=== PATIENT | male | born 1940 | race African-American/Black ===

== ENCOUNTER 2019-08-14 18:26 | Inpatient (IN) | payer OTHER, MEDICAID ==
[~2019-08-14] VITALS: Ht 170.2 cm; Wt 81.2 kg
[2019-08-14 19:17] LABS: HEMATOCRIT. 39.3 % (42.0-52.0); HEMOGLOBIN. 13.2 g/dL (14.0-18.0); MEAN CORPUSCULAR VOLUME 86.6 fL (80.0-94.0); MEAN PLATELET VOLUME 7.2 fl (7.4-10.4); PLATELET 183 x1000/uL (130-400); RED BLOOD CELL COUNT 4.55 mill/uL (4.7-6.1); RED CELL DISTRIBUTION WIDTH 15.1 % (11.6-14.6)
[2019-08-14 19:23] LABS: PROTHROMBIN TIME 10.7 sec (9.6-11.0)
[2019-08-14 19:25] LABS: CHLORIDE 91 mEq/L (98-107)
[2019-08-14 19:30] LABS: ETHANOL BLOOD < 10 mg/dL
[2019-08-14 19:32] LABS: LDL CHOLESTEROL 98 mg/dL (5-100)
[2019-08-14] MEDS ORDERED: SODIUM CHLORIDE 0.9% 1,000 ML IV NR (19:35)
[2019-08-14 20:12] LABS: PLATELET ESTIMATE NORMAL
[2019-08-14] MEDS ORDERED: ASPIRIN 325MG EC TABLET PO NR (20:30)
[2019-08-14] MEDS ORDERED: ONDANSETRON HCL 4MG/2ML INJ ONE (20:34)
[2019-08-14] MEDS ORDERED: SODIUM CHLORIDE 0.9% 1,000 ML IV ONE (20:42)
[2019-08-14] MEDS ORDERED: PIPERACILLIN/TAZ 3.375G PREMIX 50 ML IV ONE (20:45)
[2019-08-14] MEDS ORDERED: VANCOMYCIN 1 G PREMIX 200 ML IV ONE (20:45)
[2019-08-14] MEDS ORDERED: ASPIRIN 300MG SUPP PR ONE (21:00)
[2019-08-14] MEDS ORDERED: ONDANSETRON HCL 4MG/2ML INJ IV ONE (21:00)
[2019-08-14] MEDS ORDERED: ONDANSETRON HCL 4MG/2ML INJ IV PRN (21:30)
[2019-08-14] MEDS ORDERED: ACETAMINOPHEN 325MG TABLET PO PRN (21:30)
[2019-08-14] MEDS ORDERED: IOHEXOL-350 100 ML BOTTLE ONE (21:36)
[2019-08-14] MEDS ORDERED: ACETAMINOPHEN 650MG SUPP PR ONE (22:15)
[2019-08-14] MEDS ORDERED: ACETAMINOPHEN 325MG TABLET PO ONE (22:15)
[2019-08-14] MEDS ORDERED: SODIUM CHLORIDE 0.9% 1000ML BAG (SEPSIS BOLUS) IV ONE (22:15)
[2019-08-14 23:35] VITALS: BP 130/91
[2019-08-15] VITALS (12 sets, daily range): BP systolic 69–128; BP diastolic 34–55
[2019-08-15] MEDS ORDERED: MIDO5TAB4 PO (04:04)
[2019-08-15] MEDS ORDERED: ATOR40TA70 PO (04:05)
[2019-08-15] MEDS ORDERED: CLOP75TA33 PO (04:05)
[2019-08-15] MEDS ORDERED: TERA10CA4 PO (04:06)
[2019-08-15] MEDS ORDERED: OMEP20CA14 PO (04:07)
[2019-08-15] MEDS ORDERED: DEXT15DR5 RIGHTEYE (04:08)
[2019-08-15] MEDS ORDERED: FOLI1TAB33 PO (04:09)
[2019-08-15] MEDS ORDERED: PRED5DRO22 LEFTEYE (04:10)
[2019-08-15] MEDS ORDERED: LATA2.5D2 LEFTEYE (04:11)
[2019-08-15] MEDS ORDERED: DOCU240C26 PO (04:12)
[2019-08-15] MEDS ORDERED: CARB15DR BOTHEYE (04:14)
[2019-08-15 06:27] LABS: BASOPHILS % 0.3 % (0.0-2.0); EOSINOPHILS % 0.1 % (0.0-5.0); HEMATOCRIT. 35.1 % (42.0-52.0); HEMOGLOBIN. 11.7 g/dL (14.0-18.0); LYMPHOCYTES % 11.5 % (20.0-50.0); MEAN CORPUSCULAR HEMOGLOBIN 28.6 pg (28.0-32.0); MEAN CORPUSCULAR VOLUME 85.9 fL (80.0-94.0); MEAN PLATELET VOLUME 7.3 fl (7.4-10.4); MONOCYTES % 10.5 % (2.0-8.0); NEUTROPHILS % 77.6 % (40.0-76.0); PLATELET 184 x1000/uL (130-400); RED BLOOD CELL COUNT 4.08 mill/uL (4.7-6.1); RED CELL DISTRIBUTION WIDTH 15.2 % (11.6-14.6)
[2019-08-15 06:35] LABS: CHLORIDE 96 mEq/L (98-107)
[2019-08-15 06:53] LABS: LDL CHOLESTEROL 82 mg/dL (5-100)
[2019-08-15 06:54] LABS: HDL CHOLESTEROL 76 mg/dL (40-59)
[2019-08-15] MEDS ORDERED: NON FORMULARY PATIENT HOME MED OP SCH ×2 (10:15→11:45)
[2019-08-15] MEDS ORDERED: [UNRECOGNIZED DRUG - OTHER] (11:43)
[2019-08-15] MEDS: HEPARIN 5000 UNITS/ML VIAL SUBCUT SCH ×2 (12:01→22:31)
[2019-08-15] MEDS: CLOPIDOGREL 75MG TABLET PO SCH (12:01)
[2019-08-15] MEDS: DOCUSATE SODIUM 250MG CAPSULE PO SCH ×2 (12:02→22:30)
[2019-08-15] MEDS: FOLIC ACID/VITAMIN B COMP W-C TABLET PO SCH (12:02)
[2019-08-15] MEDS ORDERED: PREDNISOLONE ACETATE 1% OPHTH DROPS 5ML LEFTEYE SCH (13:00)
[2019-08-15] MEDS: POLYVINYL ALCOHOL OPHTH DROPS 15ML RIGHTEYE SCH (13:11)
[2019-08-15] MEDS ORDERED: DORZ10DR9 LEFTEYE (14:54)
[2019-08-15] MEDS: MIDODRINE HCL 5MG TABLET PO SCH ×2 (15:14→17:49)
[2019-08-15] MEDS: DORZOLAM/TIMOLOL 2.23/0.68% OPHTH DROPS 10ML LEFTEYE SCH (17:45)
[2019-08-15] MEDS: TERAZOSIN HCL 5MG CAPSULE PO SCH (21:00)
[2019-08-15] MEDS: LATANOPROST 0.005% OPHTH DROPS 2.5ML LEFTEYE SCH (21:00)
[2019-08-15] MEDS: ATORVASTATIN CALCIUM 40MG TABLET PO SCH (22:31)
[2019-08-15] MEDS: REFRESH TEARS EACHEYE PRN (22:33)
[2019-08-16] VITALS (41 sets, daily range): BP systolic 74–156; BP diastolic 29–76
[2019-08-16] MEDS ORDERED: HETASTARCH/NORMAL SALINE 500 ML PLAST..BAG IV ONE (00:30)
[2019-08-16] MEDS ORDERED: HETASTARCH/NORMAL SALINE 250 ML IV NR (01:00)
[2019-08-16 06:04] LABS: CHLORIDE 110 mEq/L (98-107)
[2019-08-16 06:10] LABS: BASOPHILS % 0.6 % (0.0-2.0); EOSINOPHILS % 3.6 % (0.0-5.0); HEMOGLOBIN. 10.5 g/dL (14.0-18.0); LYMPHOCYTES % 20.4 % (20.0-50.0); MEAN CORPUSCULAR HEMOGLOBIN 28.5 pg (28.0-32.0); MEAN CORPUSCULAR VOLUME 86.6 fL (80.0-94.0); MEAN PLATELET VOLUME 7.9 fl (7.4-10.4); MONOCYTES % 11.8 % (2.0-8.0); NEUTROPHILS % 63.6 % (40.0-76.0); PLATELET 163 x1000/uL (130-400); RED BLOOD CELL COUNT 3.69 mill/uL (4.7-6.1); RED CELL DISTRIBUTION WIDTH 15.4 % (11.6-14.6)
[2019-08-16] MEDS: DOCUSATE SODIUM 250MG CAPSULE PO SCH ×2 (08:52→17:00)
[2019-08-16] MEDS: FOLIC ACID/VITAMIN B COMP W-C TABLET PO SCH (08:54)
[2019-08-16] MEDS: MIDODRINE HCL 5MG TABLET PO SCH ×3 (08:54→16:30)
[2019-08-16] MEDS: OMEPRAZOLE 20MG CAPSULE EXTENDED RELEASE PO SCH (08:54)
[2019-08-16] MEDS: DORZOLAM/TIMOLOL 2.23/0.68% OPHTH DROPS 10ML LEFTEYE SCH ×2 (08:55→18:00)
[2019-08-16] MEDS: POLYVINYL ALCOHOL OPHTH DROPS 15ML RIGHTEYE SCH (08:55)
[2019-08-16] MEDS: CLOPIDOGREL 75MG TABLET PO SCH (08:56)
[2019-08-16] MEDS ORDERED: MIDODRINE HCL 5MG TABLET PO SCH (09:00)
[2019-08-16] MEDS ORDERED: THROMBIN (BOVINE) 5000 UNITS/VIAL TOP ONE (09:53)
[2019-08-16] MEDS ORDERED: BACITRACIN 15GM TUBE TOP ONE (09:53)
[2019-08-16] MEDS ORDERED: LIDOCAINE HCL 1% 20ML VIAL (Pyxis) INJ ONE (09:53)
[2019-08-16] MEDS ORDERED: BACITRACIN 50,000 UNITS/VIAL ONE (09:54)
[2019-08-16] MEDS ORDERED: HEPARIN SODIUM 1,000 UNIT/1ML VIAL IV ONE (09:54)
[2019-08-16] MEDS ORDERED: BUPIVACAINE HCL/PF 0.5% (5MG/ML) 10ML ONE (09:54)
[2019-08-16] MEDS ORDERED: MORPHINE SULFATE 4 MG/ML CPJ (NOT FOR IM USE) IV PRN (10:15)
[2019-08-16] MEDS ORDERED: NICARDIPINE 40MG/200ML PREMIX 200 ML IV PRN (10:15)
[2019-08-16] MEDS ORDERED: FENTANYL CITRATE/PF 50MCG/ML 2ML VIAL ONE (10:19)
[2019-08-16] MEDS ORDERED: ROCURONIUM BROMIDE 10MG/ML VIAL 5ML IV ONE (10:19)
[2019-08-16] MEDS ORDERED: PROPOFOL 200MG/20ML VIAL IV ONE (10:20)
[2019-08-16] MEDS ORDERED: MIDAZOLAM HCL 2 MG/2 ML VIAL ONE (10:20)
[2019-08-16] MEDS ORDERED: GLYCOPYRROLATE 0.2 MG/ML 2ML VIAL ONE ×2 (10:20→11:36)
[2019-08-16] MEDS ORDERED: NEOSTIGMINE METHYLSULFATE 1MG/ML 10 ML VIAL ONE (10:20)
[2019-08-16] MEDS ORDERED: ONDANSETRON HCL 4MG/2ML INJ ONE (10:27)
[2019-08-16] MEDS ORDERED: DEXAMETHASONE 4MG/ML 1ML VIAL ONE (10:27)
[2019-08-16] MEDS: ASPIRIN 81MG EC TABLET PO SCH (17:45)
[2019-08-16 20:31] LABS: HEMATOCRIT 31.6 % (42.0-52.0); HEMOGLOBIN 10.4 g/dL (14.0-18.0)
[2019-08-16] MEDS: TERAZOSIN HCL 5MG CAPSULE PO SCH (21:00)
[2019-08-16] MEDS: ATORVASTATIN CALCIUM 40MG TABLET PO SCH (22:24)
[2019-08-16] MEDS: LATANOPROST 0.005% OPHTH DROPS 2.5ML LEFTEYE SCH (22:26)
[2019-08-17] VITALS (58 sets, daily range): BP systolic 67–125; BP diastolic 38–77
[2019-08-17] MEDS ORDERED: SODIUM CHLORIDE 0.9% 250 ML IV ONE (01:45)
[2019-08-17] MEDS ORDERED: NOREPINEPHRINE 16 MG in DEXT 5% WATER 484 ML IV PRN ×2 (01:45→07:43)
[2019-08-17 06:51] LABS: BASOPHILS % 0.5 % (0.0-2.0); EOSINOPHILS % 0.8 % (0.0-5.0); HEMATOCRIT. 30.4 % (42.0-52.0); HEMOGLOBIN. 10.1 g/dL (14.0-18.0); LYMPHOCYTES % 12.8 % (20.0-50.0); MEAN CORPUSCULAR HEMOGLOBIN 28.9 pg (28.0-32.0); MEAN CORPUSCULAR VOLUME 87.1 fL (80.0-94.0); MEAN PLATELET VOLUME 6.9 fl (7.4-10.4); MONOCYTES % 10.9 % (2.0-8.0); PLATELET 174 x1000/uL (130-400); RED BLOOD CELL COUNT 3.49 mill/uL (4.7-6.1); RED CELL DISTRIBUTION WIDTH 15.3 % (11.6-14.6)
[2019-08-17 06:53] LABS: CHLORIDE 113 mEq/L (98-107)
[2019-08-17] MEDS: OMEPRAZOLE 20MG CAPSULE EXTENDED RELEASE PO SCH (07:50)
[2019-08-17] MEDS: FOLIC ACID/VITAMIN B COMP W-C TABLET PO SCH (09:00)
[2019-08-17] MEDS: MIDODRINE HCL 5MG TABLET PO SCH ×3 (09:00→17:34)
[2019-08-17] MEDS: CLOPIDOGREL 75MG TABLET PO SCH (09:00)
[2019-08-17] MEDS: ASPIRIN 81MG EC TABLET PO SCH (09:00)
[2019-08-17] MEDS: DORZOLAM/TIMOLOL 2.23/0.68% OPHTH DROPS 10ML LEFTEYE SCH ×2 (09:00→17:35)
[2019-08-17] MEDS: POLYVINYL ALCOHOL OPHTH DROPS 15ML RIGHTEYE SCH (09:00)
[2019-08-17] MEDS: DOCUSATE SODIUM 250MG CAPSULE PO SCH ×2 (09:00→17:34)
[2019-08-17] MEDS: TERAZOSIN HCL 5MG CAPSULE PO SCH (21:00)
[2019-08-17] MEDS: LATANOPROST 0.005% OPHTH DROPS 2.5ML LEFTEYE SCH (22:51)
[2019-08-17] MEDS: ATORVASTATIN CALCIUM 40MG TABLET PO SCH (22:52)
[2019-08-18] VITALS (46 sets, daily range): BP systolic 55–143; BP diastolic 35–83
[2019-08-18 05:48] LABS: BASOPHILS % 0.5 % (0.0-2.0); EOSINOPHILS % 3.3 % (0.0-5.0); HEMATOCRIT. 26.5 % (42.0-52.0); HEMOGLOBIN. 8.8 g/dL (14.0-18.0); LYMPHOCYTES % 15.3 % (20.0-50.0); MEAN CORPUSCULAR HEMOGLOBIN 28.8 pg (28.0-32.0); MEAN CORPUSCULAR VOLUME 86.5 fL (80.0-94.0); MEAN PLATELET VOLUME 7.4 fl (7.4-10.4); MONOCYTES % 9.9 % (2.0-8.0); PLATELET 169 x1000/uL (130-400); RED BLOOD CELL COUNT 3.07 mill/uL (4.7-6.1)
[2019-08-18 05:53] LABS: CHLORIDE 111 mEq/L (98-107)
[2019-08-18] MEDS: ASPIRIN 81MG EC TABLET PO SCH (08:15)
[2019-08-18] MEDS: CLOPIDOGREL 75MG TABLET PO SCH (08:15)
[2019-08-18] MEDS: FOLIC ACID/VITAMIN B COMP W-C TABLET PO SCH (08:15)
[2019-08-18] MEDS: DOCUSATE SODIUM 250MG CAPSULE PO SCH ×2 (08:18→16:42)
[2019-08-18] MEDS: MIDODRINE HCL 5MG TABLET PO SCH ×2 (08:18→16:42)
[2019-08-18] MEDS: DORZOLAM/TIMOLOL 2.23/0.68% OPHTH DROPS 10ML LEFTEYE SCH ×2 (08:20→16:42)
[2019-08-18] MEDS: OMEPRAZOLE 20MG CAPSULE EXTENDED RELEASE PO SCH (08:20)
[2019-08-18] MEDS: REFRESH TEARS EACHEYE PRN (08:20)
[2019-08-18] MEDS: POLYVINYL ALCOHOL OPHTH DROPS 15ML RIGHTEYE SCH (08:20)
[2019-08-18] MEDS: ATORVASTATIN CALCIUM 40MG TABLET PO SCH (20:39)
[2019-08-18] MEDS: LATANOPROST 0.005% OPHTH DROPS 2.5ML LEFTEYE SCH (20:39)
[2019-08-18] MEDS: TERAZOSIN HCL 5MG CAPSULE PO SCH (21:00)
[2019-08-19] VITALS (37 sets, daily range): BP systolic 68–136; BP diastolic 32–67
[2019-08-19 05:27] LABS: BASOPHILS % 0.6 % (0.0-2.0); CHLORIDE 109 mEq/L (98-107); EOSINOPHILS % 4.6 % (0.0-5.0); HEMATOCRIT. 25.1 % (42.0-52.0); HEMOGLOBIN. 8.4 g/dL (14.0-18.0); LYMPHOCYTES % 13.9 % (20.0-50.0); MEAN CORPUSCULAR VOLUME 86.4 fL (80.0-94.0); MEAN PLATELET VOLUME 7.3 fl (7.4-10.4); MONOCYTES % 10.1 % (2.0-8.0); NEUTROPHILS % 70.8 % (40.0-76.0); PLATELET 156 x1000/uL (130-400); RED BLOOD CELL COUNT 2.91 mill/uL (4.7-6.1)
[2019-08-19] MEDS: MIDODRINE HCL 5MG TABLET PO SCH ×3 (07:43→17:59)
[2019-08-19] MEDS: OMEPRAZOLE 20MG CAPSULE EXTENDED RELEASE PO SCH (07:43)
[2019-08-19] MEDS: POLYVINYL ALCOHOL OPHTH DROPS 15ML RIGHTEYE SCH (09:00)
[2019-08-19] MEDS: CLOPIDOGREL 75MG TABLET PO SCH (11:05)
[2019-08-19] MEDS: FOLIC ACID/VITAMIN B COMP W-C TABLET PO SCH (11:05)
[2019-08-19] MEDS: ASPIRIN 81MG EC TABLET PO SCH (11:05)
[2019-08-19] MEDS: DOCUSATE SODIUM 250MG CAPSULE PO SCH ×2 (11:05→17:59)
[2019-08-19] MEDS: DORZOLAM/TIMOLOL 2.23/0.68% OPHTH DROPS 10ML LEFTEYE SCH ×2 (11:05→18:00)
[2019-08-19 17:59] LABS: HEMATOCRIT 28.1 % (42.0-52.0); HEMOGLOBIN 9.3 g/dL (14.0-18.0)
[2019-08-19] MEDS: TERAZOSIN HCL 5MG CAPSULE PO SCH (21:00)
[2019-08-19] MEDS: CARVEDILOL 3.125 MG TABLET PO SCH (21:00)
[2019-08-19] MEDS: LATANOPROST 0.005% OPHTH DROPS 2.5ML LEFTEYE SCH (22:26)
[2019-08-19] MEDS: ATORVASTATIN CALCIUM 40MG TABLET PO SCH (22:26)
[2019-08-20] VITALS (13 sets, daily range): BP systolic 87–138; BP diastolic 42–72
[2019-08-20 06:44] LABS: BASOPHILS % 0.4 % (0.0-2.0); EOSINOPHILS % 4.7 % (0.0-5.0); LYMPHOCYTES % 14.8 % (20.0-50.0); MEAN CORPUSCULAR HEMOGLOBIN 28.7 pg (28.0-32.0); MEAN CORPUSCULAR VOLUME 85.6 fL (80.0-94.0); MEAN PLATELET VOLUME 7.5 fl (7.4-10.4); MONOCYTES % 9.9 % (2.0-8.0); NEUTROPHILS % 70.2 % (40.0-76.0); PLATELET 197 x1000/uL (130-400); RED BLOOD CELL COUNT 3.15 mill/uL (4.7-6.1); RED CELL DISTRIBUTION WIDTH 14.9 % (11.6-14.6)
[2019-08-20] MEDS: OMEPRAZOLE 20MG CAPSULE EXTENDED RELEASE PO SCH (06:56)
[2019-08-20] MEDS: CARVEDILOL 3.125 MG TABLET PO SCH (08:19)
[2019-08-20] MEDS: MIDODRINE HCL 5MG TABLET PO SCH ×3 (08:22→17:05)
[2019-08-20] MEDS: FOLIC ACID/VITAMIN B COMP W-C TABLET PO SCH (08:22)
[2019-08-20] MEDS: REFRESH TEARS EACHEYE PRN (08:22)
[2019-08-20] MEDS: DOCUSATE SODIUM 250MG CAPSULE PO SCH ×2 (08:22→17:05)
[2019-08-20] MEDS: DORZOLAM/TIMOLOL 2.23/0.68% OPHTH DROPS 10ML LEFTEYE SCH ×2 (08:23→17:05)
[2019-08-20] MEDS: POLYVINYL ALCOHOL OPHTH DROPS 15ML RIGHTEYE SCH (12:58)
[2019-08-20] MEDS ORDERED: ASPI-1497 MT (16:45)
[2019-08-20] MEDS ORDERED: CLOP75TA4 MT (16:45)
== END 2019-08-20 17:55 | disposition home or self-care (01) | DRG 37 ==
LOC: ER 18:26 → 5EST 21:16 → EDBEDREQ 21:21 → EDBEDREQTM 21:21 → ENRESERV 21:50 → 5EST 08-15 00:32 → CVICU 08-16 12:45 → 3WST 08-19 16:35
PROVIDERS: ADMIT Internal Medicine; ATTEND Internal Medicine
PROC: 5A1D70Z Performance of Urinary Filtration, Intermittent, Less than 6 Hours Per Day (ICD-10-PCS; 2019-08-15)
PROC: 03CN0ZZ Extirpation of Matter from Left External Carotid Artery, Open Approach (ICD-10-PCS; principal; 2019-08-16)
PROC: 03CL0ZZ Extirpation of Matter from Left Internal Carotid Artery, Open Approach (ICD-10-PCS; 2019-08-16)
PROC: 03CJ0ZZ Extirpation of Matter from Left Common Carotid Artery, Open Approach (ICD-10-PCS; 2019-08-16)
PROC: 5A1D70Z Performance of Urinary Filtration, Intermittent, Less than 6 Hours Per Day (ICD-10-PCS; 2019-08-16)
PROC: 5A1D70Z Performance of Urinary Filtration, Intermittent, Less than 6 Hours Per Day (ICD-10-PCS; 2019-08-19)
PROC: 5A1D70Z Performance of Urinary Filtration, Intermittent, Less than 6 Hours Per Day (ICD-10-PCS; 2019-08-20)
DX: I65.22 Occlusion and stenosis of left carotid artery (principal); I50.33 Acute on chronic diastolic (congestive) heart failure; N18.6 End stage renal disease; R65.11 Systemic inflammatory response syndrome (SIRS) of non-infectious origin with acute organ dysfunction; E87.1 Hypo-osmolality and hyponatremia; I13.11 Hypertensive heart and chronic kidney disease without heart failure, with stage 5 chronic kidney disease, or end stage renal disease; J98.11 Atelectasis; I13.2 Hypertensive heart and chronic kidney disease with heart failure and with stage 5 chronic kidney disease, or end stage renal disease; E44.0 Moderate protein-calorie malnutrition; I65.23 Occlusion and stenosis of bilateral carotid arteries; E78.5 Hyperlipidemia, unspecified; E87.5 Hyperkalemia; R47.81 Slurred speech; D64.9 Anemia, unspecified; I44.0 Atrioventricular block, first degree; D63.8 Anemia in other chronic diseases classified elsewhere; I49.1 Atrial premature depolarization; Z82.49 Family history of ischemic heart disease and other diseases of the circulatory system; Z79.899 Other long term (current) drug therapy; Z99.2 Dependence on renal dialysis; Z82.3 Family history of stroke; Z86.73 Personal history of transient ischemic attack (TIA), and cerebral infarction without residual deficits; Z79.02 Long term (current) use of antithrombotics/antiplatelets
CPT/HCPCS: 36415; 70496; 70498; 70544; 70553; 71045; 80048; 80053; 80061; 80320; 82140; 82962; 83036; 83605; 83721; 83735; 84132; 84145; 84484; 85014; 85018; 85025; 86850; 86900; 88304; 88311; 92610; 93005; 93306; 93880; 97162; 97164; 99291; 99292; J1100; J1644; J2250; J2405; J2543; J2704; J2710; J3010; J3370; J3490; J7030; Q9967; G0480

== ENCOUNTER 2021-06-17 11:07 | Emergency (ER) | payer OTHER, MEDICAID ==
[~2021-06-17] VITALS: Ht 172.7 cm; Wt 73.0 kg
[~2021-06-17 11:07] MED LIST: ASPI-1497 MT; ATOR40TA70 PO; CARB15DR BOTHEYE; CLOP-31 MT; CLOP75TA33 PO; DOCU240C26 PO; DORZ10DR9 LEFTEYE; FOLI1TAB33 PO; LATA2.5D14 LEFTEYE; MIDO5TAB4 PO; OMEP20CA14 PO; TERA10CA4 PO; [UNRECOGNIZED DRUG - OTHER]
[2021-06-17 11:15] VITALS: BP 108/48
[2021-06-17] MEDS ORDERED: ACETAMINOPHEN 325MG TABLET PO ONE (12:00)
== END 2021-06-17 12:58 | disposition home or self-care (01) ==
LOC: ER 11:07
DX: U07.1 COVID-19 (principal); R50.9 Fever, unspecified; I12.0 Hypertensive chronic kidney disease with stage 5 chronic kidney disease or end stage renal disease; N18.6 End stage renal disease; Z99.2 Dependence on renal dialysis; Z79.82 Long term (current) use of aspirin; Z86.73 Personal history of transient ischemic attack (TIA), and cerebral infarction without residual deficits
CPT/HCPCS: 99283

== ENCOUNTER 2021-10-05 18:50 | Inpatient (IN) | payer OTHER, MEDICAID ==
[~2021-10-05] VITALS: Ht 177.8 cm; Wt 67.6 kg
[2021-10-05] MEDS ORDERED: IOHEXOL-350 100 ML BOTTLE ONE (19:41)
[2021-10-05] MEDS ORDERED: LEVETIRACETAM 1000MG PREMIX 100 ML IV ONE (19:45)
[2021-10-05] MEDS ORDERED: ONDANSETRON HCL 4MG/2ML INJ IV ONE (19:45)
[2021-10-05] MEDS ORDERED: LORAZEPAM 2MG/ML CPJ IV ONE ×2 (19:45→22:30)
[2021-10-05 19:52] LABS: BASOPHILS % 0.2 % (0.0-2.0); HEMATOCRIT. 29.8 % (42.0-52.0); LYMPHOCYTES % 8.3 % (20.0-50.0); MEAN CORPUSCULAR HEMOGLOBIN 29.1 pg (28.0-32.0); MEAN CORPUSCULAR VOLUME 86.7 fL (80.0-94.0); MEAN PLATELET VOLUME 7.3 fl (7.4-10.4); MONOCYTES % 3.9 % (2.0-8.0); NEUTROPHILS % 87.6 % (40.0-76.0); PLATELET 222 x1000/uL (130-400); RED BLOOD CELL COUNT 3.44 mill/uL (4.7-6.1); RED CELL DISTRIBUTION WIDTH 15.3 % (11.6-14.6)
[2021-10-05 19:58] LABS: CHLORIDE 99 mEq/L (98-107)
[2021-10-05 20:07] LABS: ETHANOL BLOOD < 10 mg/dL
[2021-10-05] MEDS ORDERED: SODIUM CHLORIDE 0.9% 1000ML BAG (SEPSIS BOLUS) IV ONE (21:00)
[2021-10-05] MEDS ORDERED: ACYCLOVIR INJ 750 MG in DEXT 5% WATER 100 ML IV STA (21:22)
[2021-10-05] MEDS ORDERED: PIPERACILLIN/TAZ 3.375G PREMIX 50 ML IV NR (21:30)
[2021-10-05] MEDS ORDERED: ACETAMINOPHEN 650MG SUPP PR NR (21:30)
[2021-10-05] MEDS ORDERED: VANCOMYCIN 1G PREMIX 200 ML IV ONE (21:30)
[2021-10-06] VITALS (11 sets, daily range): BP systolic 130–182; BP diastolic 60–107
[2021-10-06 00:14] LABS: GLUCOSE CSF 70 mg/dL (41-75)
[2021-10-06] MEDS ORDERED: ACETAMINOPHEN 325MG TABLET PO PRN (03:00)
[2021-10-06] MEDS ORDERED: DEXTROSE 50% WATER 50ML SYRINGE IV PRN (11:00)
[2021-10-06 11:05] LABS: BG BASE EXCESS 5.5 mmol/L (-2.0-2.0); BG CARBOXYHEMOGLOBIN 0.3 % (0.5-1.5); BG DEOXYHEMOGLOBIN 1.2 % (0.0-5.0); BG FRACTION INSPIRED OXYGEN 26; BG HCO3 ACT 30.2 mmol/L (22.0-26.0); BG METHEMOGLOBIN 0.3 % (0.0-1.5); BG OXYGEN SATURATION 98.8 % (92.0-98.5); BG OXYHEMOGLOBIN 98.2 % (94.0-97.0); BG PCO2 44.7 mmHg (35.0-45.0); BG PH 7.447 (7.350-7.450); BG PO2 136.7 mmHg (75.0-100.0); BG SAMPLE SITE RIGHT RADIAL; BG TOTAL HEMOGLOBIN 9.4 g/dL (12.0-18.0); BG VENT MODE NASAL CANNULA
[2021-10-06] MEDS: DEXT 5%/0.45% NACL 1000ML 1,000 ML IV SCH (11:12)
[2021-10-06] MEDS: FAMOTIDINE 20MG/2ML VIAL IV SCH (11:12)
[2021-10-06] MEDS: HYDRALAZINE 20MG/ML VIAL IV PRN ×3 (11:12→23:11)
[2021-10-06] MEDS: PIPERACILLIN/TAZOBACTAM 3.375 G in DEXTROSE 5% WATER 50 ML IV SCH ×3 (12:00→22:03)
[2021-10-06 12:54] LABS: CHLORIDE 101 mEq/L (98-107); PROTHROMBIN TIME 10.9 sec (9.6-11.0)
[2021-10-06] MEDS: INSULIN LISPRO 100 UNITS/ML SUBCUT SCH ×3 (13:00→21:00)
[2021-10-06] MEDS: BLOOD SUGAR DIAGNOSTIC STRIP TEST SCH ×3 (13:05→21:48)
[2021-10-06 13:17] LABS: HEPATITIS B SURFACE ANTIGEN NEGATIVE
[2021-10-06 14:45] LABS: VITAMIN B12 SERUM 1036 pg/mL (211-911)
[2021-10-06] MEDS: POLYVINYL ALCOHOL OPHTH DROPS 15ML RIGHTEYE SCH ×3 (16:30→21:49)
[2021-10-06 17:03] LABS: BASOPHILS % 0.6 % (0.0-2.0); EOSINOPHILS % 0.7 % (0.0-5.0); HEMATOCRIT. 29.4 % (42.0-52.0); LYMPHOCYTES % 19.7 % (20.0-50.0); MEAN CORPUSCULAR HEMOGLOBIN 29.1 pg (28.0-32.0); MEAN CORPUSCULAR VOLUME 85.4 fL (80.0-94.0); MEAN PLATELET VOLUME 6.9 fl (7.4-10.4); MONOCYTES % 10.2 % (2.0-8.0); NEUTROPHILS % 68.8 % (40.0-76.0); PLATELET 205 x1000/uL (130-400); RED BLOOD CELL COUNT 3.44 mill/uL (4.7-6.1); RED CELL DISTRIBUTION WIDTH 15.1 % (11.6-14.6)
[2021-10-06] MEDS: ENOXAPARIN 80MG/0.8ML SYR SUBCUT SCH (17:23)
[2021-10-06] MEDS ORDERED: *PATIENT'S OWN MEDICATION STORAGE XX SCH (17:30)
[2021-10-06] MEDS ORDERED: VANCOMYCIN 750MG PMX (XELLIA) 150 ML IV SCH (21:00)
[2021-10-07] VITALS (12 sets, daily range): BP systolic 143–177; BP diastolic 63–86
[2021-10-07] MEDS: POLYVINYL ALCOHOL OPHTH DROPS 15ML RIGHTEYE SCH ×8 (01:33→23:23)
[2021-10-07 06:33] LABS: BASOPHILS % 0.7 % (0.0-2.0); EOSINOPHILS % 0.3 % (0.0-5.0); HEMATOCRIT. 29.4 % (42.0-52.0); HEMOGLOBIN. 10.1 g/dL (14.0-18.0); LYMPHOCYTES % 15.9 % (20.0-50.0); MEAN CORPUSCULAR HEMOGLOBIN 28.7 pg (28.0-32.0); MEAN CORPUSCULAR VOLUME 83.9 fL (80.0-94.0); MEAN PLATELET VOLUME 7.7 fl (7.4-10.4); MONOCYTES % 7.6 % (2.0-8.0); NEUTROPHILS % 75.5 % (40.0-76.0); PLATELET 190 x1000/uL (130-400); RED BLOOD CELL COUNT 3.51 mill/uL (4.7-6.1)
[2021-10-07] MEDS: BLOOD SUGAR DIAGNOSTIC STRIP TEST SCH ×4 (07:30→21:00)
[2021-10-07] MEDS: INSULIN LISPRO 100 UNITS/ML SUBCUT SCH ×4 (08:00→21:00)
[2021-10-07] MEDS: ASPIRIN 81MG EC TABLET PO SCH (08:45)
[2021-10-07] MEDS: FAMOTIDINE 20MG/2ML VIAL IV SCH (08:45)
[2021-10-07] MEDS: PIPERACILLIN/TAZOBACTAM 3.375 G in DEXTROSE 5% WATER 50 ML IV SCH ×2 (08:46→21:37)
[2021-10-07] MEDS: HYDRALAZINE 20MG/ML VIAL IV PRN (08:57)
[2021-10-07] MEDS: BRIMONIDINE 0.2% OPHTH DROPS 5ML LEFTEYE SCH ×3 (09:45→14:14)
[2021-10-07] MEDS: KETOROLAC TROMETHAMINE 0.5% OPHTH 3ML LEFTEYE SCH ×4 (09:46→20:21)
[2021-10-07] MEDS: LEVETIRACETAM 500MG PREMIX 100 ML IV SCH ×2 (14:12→22:19)
[2021-10-07] MEDS: ONDANSETRON HCL 4MG/2ML INJ IV PRN (14:12)
[2021-10-07] MEDS ORDERED: ENALAPRIL 2.5MG/2ML VIAL 2ML IV PRN (16:45)
[2021-10-07] MEDS ORDERED: ENALAPRIL 1.25MG/ML VIAL 1ML IV PRN (17:00)
[2021-10-07] MEDS: ENOXAPARIN 80MG/0.8ML SYR SUBCUT SCH (17:23)
[2021-10-08] VITALS (12 sets, daily range): BP systolic 116–162; BP diastolic 58–95
[2021-10-08] MEDS: POLYVINYL ALCOHOL OPHTH DROPS 15ML RIGHTEYE SCH ×7 (01:55→21:13)
[2021-10-08] MEDS: HYDRALAZINE 20MG/ML VIAL IV PRN (02:30)
[2021-10-08] MEDS: DEXT 5%/0.45% NACL 1000ML 1,000 ML IV SCH ×2 (02:36→11:53)
[2021-10-08 06:31] LABS: BASOPHILS % 0.6 % (0.0-2.0); HEMATOCRIT. 27.6 % (42.0-52.0); HEMOGLOBIN. 9.2 g/dL (14.0-18.0); LYMPHOCYTES % 13.8 % (20.0-50.0); MEAN CORPUSCULAR HEMOGLOBIN 28.3 pg (28.0-32.0); MEAN PLATELET VOLUME 7.6 fl (7.4-10.4); MONOCYTES % 8.2 % (2.0-8.0); NEUTROPHILS % 75.4 % (40.0-76.0); PLATELET 176 x1000/uL (130-400); RED BLOOD CELL COUNT 3.25 mill/uL (4.7-6.1)
[2021-10-08] MEDS: INSULIN LISPRO 100 UNITS/ML SUBCUT SCH ×4 (08:00→21:00)
[2021-10-08] MEDS: KETOROLAC TROMETHAMINE 0.5% OPHTH 3ML LEFTEYE SCH ×5 (08:00→20:29)
[2021-10-08] MEDS: BRIMONIDINE 0.2% OPHTH DROPS 5ML LEFTEYE SCH ×3 (08:00→14:51)
[2021-10-08] MEDS: BLOOD SUGAR DIAGNOSTIC STRIP TEST SCH ×4 (08:03→21:00)
[2021-10-08] MEDS: LEVETIRACETAM 500MG PREMIX 100 ML IV SCH (09:00)
[2021-10-08] MEDS: ASPIRIN 81MG EC TABLET PO SCH (09:00)
[2021-10-08] MEDS: PIPERACILLIN/TAZOBACTAM 3.375 G in DEXTROSE 5% WATER 50 ML IV SCH ×2 (11:42→20:28)
[2021-10-08] MEDS: FAMOTIDINE 20MG/2ML VIAL IV SCH (11:48)
[2021-10-08] MEDS: ENOXAPARIN 80MG/0.8ML SYR SUBCUT SCH (18:08)
[2021-10-09] VITALS (11 sets, daily range): BP systolic 87–180; BP diastolic 56–87
[2021-10-09] MEDS: ONDANSETRON HCL 4MG/2ML INJ IV PRN (00:33)
[2021-10-09 05:49] LABS: BASOPHILS % 0.7 % (0.0-2.0); EOSINOPHILS % 2.7 % (0.0-5.0); HEMATOCRIT. 28.7 % (42.0-52.0); HEMOGLOBIN. 9.5 g/dL (14.0-18.0); LYMPHOCYTES % 15.6 % (20.0-50.0); MEAN CORPUSCULAR HEMOGLOBIN 28.2 pg (28.0-32.0); MEAN CORPUSCULAR VOLUME 85.2 fL (80.0-94.0); MEAN PLATELET VOLUME 7.6 fl (7.4-10.4); MONOCYTES % 11.4 % (2.0-8.0); NEUTROPHILS % 69.6 % (40.0-76.0); PLATELET 207 x1000/uL (130-400); RED BLOOD CELL COUNT 3.37 mill/uL (4.7-6.1); RED CELL DISTRIBUTION WIDTH 15.4 % (11.6-14.6)
[2021-10-09] MEDS: INSULIN LISPRO 100 UNITS/ML SUBCUT SCH ×4 (08:00→20:41)
[2021-10-09] MEDS: FAMOTIDINE 20MG/2ML VIAL IV SCH (08:02)
[2021-10-09] MEDS: BLOOD SUGAR DIAGNOSTIC STRIP TEST SCH ×4 (08:02→20:41)
[2021-10-09] MEDS: PIPERACILLIN/TAZOBACTAM 3.375 G in DEXTROSE 5% WATER 50 ML IV SCH (08:02)
[2021-10-09] MEDS: POLYVINYL ALCOHOL OPHTH DROPS 15ML RIGHTEYE SCH ×6 (08:03→22:41)
[2021-10-09] MEDS: BRIMONIDINE 0.2% OPHTH DROPS 5ML LEFTEYE SCH ×3 (08:03→14:27)
[2021-10-09] MEDS: KETOROLAC TROMETHAMINE 0.5% OPHTH 3ML LEFTEYE SCH ×4 (08:03→20:45)
[2021-10-09] MEDS: ASPIRIN 81MG EC TABLET PO SCH (08:04)
[2021-10-09] MEDS ORDERED: APIX2.5T MT (14:24)
[2021-10-09] MEDS: ENOXAPARIN 80MG/0.8ML SYR SUBCUT SCH (16:11)
[2021-10-10] VITALS (12 sets, daily range): BP systolic 99–170; BP diastolic 51–90
[2021-10-10] MEDS: POLYVINYL ALCOHOL OPHTH DROPS 15ML RIGHTEYE SCH ×8 (01:42→22:07)
[2021-10-10 05:51] LABS: BASOPHILS % 0.6 % (0.0-2.0); EOSINOPHILS % 5.8 % (0.0-5.0); HEMATOCRIT. 24.6 % (42.0-52.0); HEMOGLOBIN. 8.2 g/dL (14.0-18.0); MEAN CORPUSCULAR HEMOGLOBIN 28.8 pg (28.0-32.0); MEAN CORPUSCULAR VOLUME 86.1 fL (80.0-94.0); MEAN PLATELET VOLUME 7.9 fl (7.4-10.4); NEUTROPHILS % 61.6 % (40.0-76.0); PLATELET 158 x1000/uL (130-400); RED BLOOD CELL COUNT 2.86 mill/uL (4.7-6.1)
[2021-10-10] MEDS: INSULIN LISPRO 100 UNITS/ML SUBCUT SCH ×4 (07:43→20:25)
[2021-10-10] MEDS: BLOOD SUGAR DIAGNOSTIC STRIP TEST SCH ×4 (07:43→20:23)
[2021-10-10] MEDS: ASPIRIN 81MG EC TABLET PO SCH (09:26)
[2021-10-10] MEDS: FAMOTIDINE 20MG TABLET PO SCH (09:26)
[2021-10-10] MEDS: KETOROLAC TROMETHAMINE 0.5% OPHTH 3ML LEFTEYE SCH ×4 (09:37→19:21)
[2021-10-10] MEDS: BRIMONIDINE 0.2% OPHTH DROPS 5ML LEFTEYE SCH ×3 (09:38→13:43)
[2021-10-10] MEDS: ENOXAPARIN 80MG/0.8ML SYR SUBCUT SCH (15:59)
[2021-10-11] VITALS (9 sets, daily range): BP systolic 131–181; BP diastolic 70–96
[2021-10-11] MEDS: POLYVINYL ALCOHOL OPHTH DROPS 15ML RIGHTEYE SCH ×5 (02:02→13:06)
[2021-10-11 06:34] LABS: BASOPHILS % 0.7 % (0.0-2.0); EOSINOPHILS % 4.2 % (0.0-5.0); HEMATOCRIT. 26.3 % (42.0-52.0); HEMOGLOBIN. 9.6 g/dL (14.0-18.0); LYMPHOCYTES % 25.1 % (20.0-50.0); MEAN CORPUSCULAR VOLUME 95.7 fL (80.0-94.0); PLATELET 241 x1000/uL (130-400); RED BLOOD CELL COUNT 2.74 mill/uL (4.7-6.1); RED CELL DISTRIBUTION WIDTH 16.5 % (11.6-14.6)
[2021-10-11] MEDS: BLOOD SUGAR DIAGNOSTIC STRIP TEST SCH ×2 (07:43→11:23)
[2021-10-11] MEDS: INSULIN LISPRO 100 UNITS/ML SUBCUT SCH ×2 (07:44→12:03)
[2021-10-11] MEDS: BRIMONIDINE 0.2% OPHTH DROPS 5ML LEFTEYE SCH ×3 (09:10→13:07)
[2021-10-11] MEDS: ASPIRIN 81MG EC TABLET PO SCH (09:10)
[2021-10-11] MEDS: FAMOTIDINE 20MG TABLET PO SCH (09:10)
[2021-10-11] MEDS: KETOROLAC TROMETHAMINE 0.5% OPHTH 3ML LEFTEYE SCH ×3 (09:10→13:07)
[2021-10-11] MEDS ORDERED: AMLODIPINE 5MG TABLET PO SCH (21:00)
[2021-10-12 07:31] LABS: *HSV 1 DNA PCR NEGATIVE
[2021-10-12 07:33] LABS: *HSV 2 DNA PCR NEGATIVE
[2021-10-12 10:11] LABS: WEST NILE VIRUS CSF IGG Negative (Negative)
[2021-10-12 13:07] LABS: WEST NILE VIRUS CSF IGM Negative (Negative)
== END 2021-10-11 16:20 | disposition hospice, home (50) | DRG 100 ==
LOC: ER 18:50 → 5EST 21:29 → ENRESERV 22:00
PROVIDERS: ADMIT Internal Medicine; ATTEND Internal Medicine
PROC: 009U3ZX Drainage of Spinal Canal, Percutaneous Approach, Diagnostic (ICD-10-PCS; 2021-10-06)
PROC: 5A1D70Z Performance of Urinary Filtration, Intermittent, Less than 6 Hours Per Day (ICD-10-PCS; 2021-10-06)
PROC: 4A10X4Z Monitoring of Central Nervous Electrical Activity, External Approach (ICD-10-PCS; principal; 2021-10-08)
PROC: 5A1D70Z Performance of Urinary Filtration, Intermittent, Less than 6 Hours Per Day (ICD-10-PCS; 2021-10-08)
PROC: 5A1D70Z Performance of Urinary Filtration, Intermittent, Less than 6 Hours Per Day (ICD-10-PCS; 2021-10-11)
DX: G40.909 Epilepsy, unspecified, not intractable, without status epilepticus (principal); N18.6 End stage renal disease; I12.0 Hypertensive chronic kidney disease with stage 5 chronic kidney disease or end stage renal disease; Z99.2 Dependence on renal dialysis; E11.22 Type 2 diabetes mellitus with diabetic chronic kidney disease; Z86.73 Personal history of transient ischemic attack (TIA), and cerebral infarction without residual deficits; D64.9 Anemia, unspecified; I65.21 Occlusion and stenosis of right carotid artery; I77.810 Thoracic aortic ectasia; E04.1 Nontoxic single thyroid nodule; E78.5 Hyperlipidemia, unspecified; F17.200 Nicotine dependence, unspecified, uncomplicated; I48.0 Paroxysmal atrial fibrillation; Z20.822 Contact with and (suspected) exposure to COVID-19; Z79.01 Long term (current) use of anticoagulants; Z79.02 Long term (current) use of antithrombotics/antiplatelets; Z79.82 Long term (current) use of aspirin; Z79.899 Other long term (current) drug therapy; Z97.0 Presence of artificial eye
CPT/HCPCS: 36415; 36600; 70496; 70498; 70551; 71045; 74176; 80048; 80053; 80320; 82140; 82375; 82550; 82607; 82805; 82945; 82962; 83036; 83605; 84145; 84157; 84443; 84484; 85025; 86592; 86658; 86663; 86705; 86709; 86788; 86789; 86803; 87070; 87340; 87426; 87529; 87899; 92610; 93005; 93306; 93880; 93970; 95816; 97116; 97162; 99291; J0133; J0360; J1650; J1953; J2060; J2405; J2543; J3370; J3490; J7030; J7060; Q9967; G0480

== ENCOUNTER 2022-10-28 16:12 | Inpatient (IN) | payer BC, MEDICAID ==
[~2022-10-28] VITALS: Ht 177.8 cm; Wt 78.2 kg
[~2022-10-28 16:12] MED LIST changes: +APIX2.5T MT; -CLOP-31 MT; -CLOP75TA33 PO
[2022-10-28] MEDS ORDERED: SODIUM CHLORIDE 0.9% 1,000 ML IV ONE ×2 (16:45→17:30)
[2022-10-28 17:17] LABS: BASOPHILS % 0.6 % (0.0-2.0); EOSINOPHILS % 1.6 % (0.0-5.0); HEMOGLOBIN. 11.6 g/dL (14.0-18.0); LYMPHOCYTES % 20.9 % (20.0-50.0); MEAN CORPUSCULAR HEMOGLOBIN 29.1 pg (28.0-32.0); MEAN CORPUSCULAR VOLUME 90.5 fL (80.0-94.0); MEAN PLATELET VOLUME 7.5 fl (7.4-10.4); MONOCYTES % 10.3 % (2.0-8.0); NEUTROPHILS % 66.6 % (40.0-76.0); PLATELET 243 x1000/uL (130-400); RED BLOOD CELL COUNT 3.98 mill/uL (4.7-6.1); RED CELL DISTRIBUTION WIDTH 15.2 % (11.6-14.6)
[2022-10-28 17:53] LABS: CHLORIDE 99 mEq/L (98-107)
[2022-10-28] MEDS ORDERED: VANCOMYCIN 1G PREMIX 200 ML IV ONE (18:30)
[2022-10-28] MEDS ORDERED: PIPERACILLIN/TAZ 3.375G PREMIX 50 ML IV ONE (18:30)
[2022-10-28 22:36] VITALS: BP 100/52; PULSE 67; RESP 28; TEMP 98.6
[2022-10-28 22:39] VITALS: BP 100/52; PULSE 67; RESP 18; TEMP 98.6
[2022-10-29] VITALS: BP 146/64; PULSE 70; RESP 14
[2022-10-29] MEDS ORDERED: ONDANSETRON HCL 4MG/2ML INJ IV PRN (01:00)
[2022-10-29] MEDS ORDERED: SODIUM CHLORIDE 0.9% 1,000 ML IV ONE (01:00)
[2022-10-29] MEDS ORDERED: ACETAMINOPHEN 325MG TABLET PO PRN (01:00)
[2022-10-29] MEDS ORDERED: DEXTROSE 50% WATER 50ML SYRINGE IV PRN (01:00)
[2022-10-29 02:00] VITALS: BP 72/41; PULSE 80; RESP 15
[2022-10-29 04:00] VITALS: BP 85/50; PULSE 71; RESP 23; TEMP 98.1
[2022-10-29 06:18] LABS: BASOPHILS % 0.3 % (0.0-2.0); EOSINOPHILS % 0.3 % (0.0-5.0); HEMATOCRIT. 32.5 % (42.0-52.0); HEMOGLOBIN. 10.6 g/dL (14.0-18.0); LYMPHOCYTES % 8.5 % (20.0-50.0); MEAN CORPUSCULAR HEMOGLOBIN 28.8 pg (28.0-32.0); MEAN CORPUSCULAR VOLUME 87.8 fL (80.0-94.0); MEAN PLATELET VOLUME 7.4 fl (7.4-10.4); MONOCYTES % 7.5 % (2.0-8.0); NEUTROPHILS % 83.4 % (40.0-76.0); PLATELET 200 x1000/uL (130-400); RED CELL DISTRIBUTION WIDTH 15.4 % (11.6-14.6)
[2022-10-29] MEDS: BLOOD SUGAR DIAGNOSTIC STRIP TEST SCH ×3 (06:47→16:50)
[2022-10-29] MEDS: INSULIN LISPRO 100 UNITS/ML SUBCUT SCH ×3 (07:20→17:20)
[2022-10-29 08:00] VITALS: BP 107/55; PULSE 67; RESP 15; TEMP 98.8
[2022-10-29] MEDS ORDERED: HEPARIN 5000 UNITS/ML VIAL SUBCUT SCH (09:00)
[2022-10-29 12:00] VITALS: BP 120/53; PULSE 61; RESP 20; TEMP 98.5
[2022-10-29] MEDS ORDERED: POLYVINYL ALCOHOL OPHTH DROPS 15ML LEFTEYE SCH (17:00)
[2022-10-29] MEDS ORDERED: APIXABAN 2.5 MG TABLET PO SCH (17:00)
[2022-10-29] MEDS ORDERED: OMEPRAZOLE 20MG CAPSULE EXTENDED RELEASE PO SCH (17:00)
[2022-10-29] MEDS ORDERED: LACOSAMIDE 50 MG PO SCH (17:00)
[2022-10-29 17:04] VITALS: BP 120/53; PULSE 61; TEMP 98.5; O2SAT 97
[2022-10-29] MEDS ORDERED: ATORVASTATIN CALCIUM 40MG TABLET PO SCH (21:00)
[2022-10-29] MEDS ORDERED: BRIMONIDINE 0.2% OPHTH DROPS 5ML LEFTEYE SCH (22:00)
== END 2022-10-29 17:00 | disposition home or self-care (01) | DRG 73 ==
LOC: ER 16:12 → EDBEDREQTM 18:30 → MICUSO 21:34 → EDBEDREQ 21:38 → EDBEDREQTM 21:38 → EDBEDREQSVC 21:38 → 3WST 23:57
PROVIDERS: ADMIT Internal Medicine; ATTEND Internal Medicine
DX: G90.8 Other disorders of autonomic nervous system (principal); N18.6 End stage renal disease; I12.0 Hypertensive chronic kidney disease with stage 5 chronic kidney disease or end stage renal disease; G40.909 Epilepsy, unspecified, not intractable, without status epilepticus; E11.22 Type 2 diabetes mellitus with diabetic chronic kidney disease; F03.90 Unspecified dementia, unspecified severity, without behavioral disturbance, psychotic disturbance, mood disturbance, and anxiety; H40.9 Unspecified glaucoma; Z99.2 Dependence on renal dialysis; Z86.73 Personal history of transient ischemic attack (TIA), and cerebral infarction without residual deficits; Z79.4 Long term (current) use of insulin
CPT/HCPCS: 36415; 71045; 80048; 80053; 82962; 83036; 83605; 84484; 85025; 93005; 99291; J1644; J2543; J3370; J7030

== ENCOUNTER 2024-01-26 12:41 | Inpatient (IN) | payer BC, MEDICAID, MEDICARE ==
[~2024-01-26] VITALS: Ht 182.9 cm; Wt 68.5 kg
[~2024-01-26 12:41] MED LIST changes: -CARB15DR BOTHEYE; +CARB15DR LEFTEYE
[2024-01-26] MEDS: HYDROCODONE/ACETAMINOPHEN 10/325MG TABLET PO ONE (13:15)
[2024-01-26 15:20] LABS: DIFFERENTIAL COMMENT 1; HEMOGLOBIN. 11.7 g/dL (14.0-18.0); MEAN CORPUSCULAR HGB CONC 32.4 g/dL (31.0-37.0); MEAN CORPUSCULAR VOLUME 92.4 fL (80.0-94.0); MEAN PLATELET VOLUME 7.5 fl (7.4-10.4); PLATELET 219 x1000/uL (130-400); RED BLOOD CELL COUNT 3.89 mill/uL (4.7-6.1); RED CELL DISTRIBUTION WIDTH 19.1 % (11.6-14.6); WHITE BLOOD COUNT 14.7 x1000/uL (4.5-11.0)
[2024-01-26 15:26] LABS: CALCIUM 10.2 mg/dL (8.7-10.4)
[2024-01-26 15:56] LABS: CREATININE 8.8 mg/dL (0.6-1.3); POTASSIUM 6.5 mEq/L (3.5-5.1)
[2024-01-26 16:26] LABS: PROTHROMBIN TIME 10.9 sec (9.6-11.0)
[2024-01-26 17:20] VITALS: PULSE 90; RESP 18
[2024-01-26] MEDS: ALBUTEROL (0.083%) 2.5MG/3ML NEB HHN ONE (17:20)
[2024-01-26] MEDS: DEXTROSE 50% WATER 50ML SYRINGE IV ONE (17:23)
[2024-01-26] MEDS: SODIUM BICARBONATE 8.4% 50MEQ/50ML SYR IV ONE (17:23)
[2024-01-26] MEDS: INSULIN REGULAR (HUMULIN R) 1000UNITS/10ML VIAL IV ONE (17:25)
[2024-01-26] MEDS: SODIUM ZIRCONIUM CYCLOSILICATE 10GM/PACKET PO ONE (18:12)
[2024-01-26 18:53] LABS: ANISOCYTOSIS 1+; PLATELET ESTIMATE NORMAL
[2024-01-26 18:54] LABS: OVALOCYTES 1+
[2024-01-26] MEDS ORDERED: IPRATROPIUM/ALBUTEROL 0.5-3(2.5)MG/3ML NEB HHN PRN (19:45)
[2024-01-26] MEDS ORDERED: ONDANSETRON HCL 4MG/2ML INJ IV PRN (19:45)
[2024-01-26] MEDS ORDERED: DEXTROSE 50% WATER 50ML SYRINGE IV PRN (19:45)
[2024-01-26] MEDS ORDERED: NALOXONE HCL 0.4MG/ML VIAL IV PRN (20:45)
[2024-01-26 21:12] LABS: CHLORIDE 93 mEq/L (98-107); SODIUM 136 mEq/L (136-145)
[2024-01-26 21:13] LABS: CARBON DIOXIDE 23 mEq/L (21-32)
[2024-01-26 21:18] LABS: GLUCOSE 117 mg/dL (70-105); IRON 39 ug/dL (65-175); UREA NITROGEN BLOOD 36 mg/dL (9-23)
[2024-01-26 21:20] LABS: ALANINE AMINOTRANSFERASE 21 IU/L (10-49); ALBUMIN 4.5 g/dL (3.2-4.8); ASPARTATE AMINOTRANSFERASE 34 IU/L (<34); BILIRUBIN DIRECT 0.1 mg/dL (<=3.0); BILIRUBIN TOTAL 0.4 mg/dL (0.1-1.0); PHOSPHORUS 1.2 mg/dL (2.5-4.9); TOTAL IRON BINDING CAPACITY 384 ug/dl (250-425)
[2024-01-26 21:21] LABS: PROTEIN TOTAL 7.6 g/dL (6.0-8.3)
[2024-01-26 21:24] LABS: CREATININE 9.8 mg/dL (0.6-1.3)
[2024-01-26 21:25] LABS: LACTIC ACID 8.9 mmol/L (0.4-2.0)
[2024-01-26] MEDS: BLOOD SUGAR DIAGNOSTIC STRIP TEST SCH (23:30)
[2024-01-26] MEDS: CEFTRIAXONE 2GM/50ML 50 ML IV SCH (23:54)
[2024-01-27] VITALS (10 sets, daily range): BP systolic 76–105; BP diastolic 42–55; PULSE 56–91; RESP 18–19; TEMP 36.114–36.6696; O2SAT 97–100
[2024-01-27 00:03] LABS: CREATINE KINASE 499 IU/L (46-171)
[2024-01-27] MEDS: SODIUM PHOSPHATE 30 MMOL in DEXT 5% WATER 490 ML IV NR (00:16)
[2024-01-27 00:38] LABS: TROPONIN I HIGH SENSITIVITY 199 ng/L (3.0-53)
[2024-01-27] MEDS: HYDROCODONE/ACETAMINOPHEN 5/325MG TABLET PO PRN (01:22)
[2024-01-27 07:10] LABS: CHLORIDE 92 mEq/L (98-107); POTASSIUM 5.7 mEq/L (3.5-5.1); SODIUM 134 mEq/L (136-145)
[2024-01-27 07:11] LABS: CALCIUM 9.7 mg/dL (8.7-10.4); CARBON DIOXIDE 24 mEq/L (21-32)
[2024-01-27 07:16] LABS: GLUCOSE 162 mg/dL (70-105)
[2024-01-27 07:17] LABS: LDL CHOLESTEROL 45 mg/dL (5-100); TRIGLYCERIDE 51 mg/dL (0-150); UREA NITROGEN BLOOD 32 mg/dL (9-23)
[2024-01-27 07:18] LABS: CHOLESTEROL 117 mg/dL (<200); CREATINE KINASE 562 IU/L (46-171); HDL CHOLESTEROL 67 mg/dL (>55)
[2024-01-27 07:19] LABS: PHOSPHORUS 3.2 mg/dL (2.5-4.9)
[2024-01-27 07:20] LABS: CREATININE 10.4 mg/dL (0.6-1.3)
[2024-01-27 07:23] LABS: THYROID STIMULATING HORMONE 1.32 uIU/mL (0.55-4.78)
[2024-01-27 07:44] LABS: FOLIC ACID (FOLATE) SERUM > 20.00 ng/mL (>5.38); VITAMIN B12 SERUM 1121 pg/mL (211-911)
[2024-01-27 07:45] LABS: FERRITIN 936 ng/mL (22-322)
[2024-01-27] MEDS: FAMOTIDINE 20MG/2ML VIAL IV SCH (09:01)
[2024-01-27 16:38] LABS: POTASSIUM 4.6 mEq/L (3.5-5.1)
[2024-01-27 16:43] LABS: CHLORIDE 100 mEq/L (98-107); POTASSIUM 4.6 mEq/L (3.5-5.1); SODIUM 138 mEq/L (136-145)
[2024-01-27 16:44] LABS: CARBON DIOXIDE 26 mEq/L (21-32)
[2024-01-27 16:45] LABS: CALCIUM 9.4 mg/dL (8.7-10.4)
[2024-01-27 16:49] LABS: GLUCOSE 100 mg/dL (70-105)
[2024-01-27 16:50] LABS: UREA NITROGEN BLOOD 23 mg/dL (9-23)
[2024-01-27 16:51] LABS: ALANINE AMINOTRANSFERASE 21 IU/L (10-49); ALBUMIN 4.2 g/dL (3.2-4.8); ASPARTATE AMINOTRANSFERASE 43 IU/L (<34)
[2024-01-27 16:52] LABS: BILIRUBIN TOTAL 0.2 mg/dL (0.1-1.0); PROTEIN TOTAL 6.8 g/dL (6.0-8.3)
[2024-01-27 16:54] LABS: CREATININE 6.7 mg/dL (0.6-1.3)
[2024-01-27 19:30] LABS: BASOPHILS % 0.3 % (0.0-2.0); EOSINOPHILS % 0.1 % (0.0-5.0); MEAN CORPUSCULAR HEMOGLOBIN 29.6 pg (28.0-32.0); MEAN CORPUSCULAR HGB CONC 31.5 g/dL (31.0-37.0); MEAN CORPUSCULAR VOLUME 93.9 fL (80.0-94.0); MEAN PLATELET VOLUME 7.8 fl (7.4-10.4); MONOCYTES % 10.8 % (2.0-8.0); NEUTROPHILS % 80.8 % (40.0-76.0); PLATELET 170 x1000/uL (130-400); RED BLOOD CELL COUNT 3.73 mill/uL (4.7-6.1); RED CELL DISTRIBUTION WIDTH 20.1 % (11.6-14.6); WHITE BLOOD COUNT 16.7 x1000/uL (4.5-11.0)
[2024-01-27] MEDS ORDERED: POLY15DR31 RIGHTEYE (21:09)
[2024-01-27] MEDS ORDERED: BRIM.2 LEFTEYE (21:09)
[2024-01-27] MEDS ORDERED: NETA2.5D3 LEFTEYE (21:29)
[2024-01-27] MEDS ORDERED: CYCL1DRO14 LEFTEYE (21:29)
[2024-01-27] MEDS ORDERED: CARBOXYMETHYLCELLULOSE SODIUM LEFTEYE SCH (22:15)
[2024-01-27] MEDS: POLYVINYL ALCOHOL OPHTH DROPS 15ML LEFTEYE SCH (22:50)
[2024-01-27] MEDS: LATANOPROST 0.005% OPHTH DROPS 2.5ML LEFTEYE SCH (22:50)
[2024-01-27] MEDS: DORZOLAM/TIMOLOL 2.23/0.68% OPHTH DROPS 10ML LEFTEYE SCH (22:52)
[2024-01-28] VITALS: BP 104/38; PULSE 74; RESP 18; TEMP 36.16956; O2SAT 98
[2024-01-28 04:00] VITALS: BP 111/57; PULSE 63; RESP 19; TEMP 35.89176; O2SAT 98
[2024-01-28] MEDS: MORPHINE SULFATE 2 MG/ML INJ (NOT FOR IM USE) IV PRN (05:33)
[2024-01-28] MEDS ORDERED: POLYMYXIN B SULFATE 500000 UNITS/VIAL ONE (06:42)
[2024-01-28] MEDS ORDERED: LIDOCAINE HCL/EPINEPHRINE 1%-EPI 1:100,000 20ML VIAL ONE (06:42)
[2024-01-28] MEDS ORDERED: SKIN ADHESIVE 0.7 GM EA TOP ONE (06:43)
[2024-01-28] MEDS ORDERED: VANCOMYCIN HCL 1GM VIAL ONE (06:43)
[2024-01-28 08:00] VITALS: BP 88/46; PULSE 80; RESP 19; TEMP 36.50292; O2SAT 96
[2024-01-28] MEDS ORDERED: POLYVINYL ALCOHOL OPHTH DROPS 15ML LEFTEYE SCH (09:00)
[2024-01-28 12:00] VITALS: BP 103/55; PULSE 75; RESP 18; TEMP 36.61404; O2SAT 97
[2024-01-28] MEDS ORDERED: LACO50TA2 MT (12:09)
[2024-01-28] MEDS ORDERED: KETO5DRO38 LEFTEYE (12:09)
[2024-01-28] MEDS ORDERED: PROP20TA7 MT (12:09)
[2024-01-28] MEDS ORDERED: NETA2.5D LEFTEYE (12:09)
[2024-01-28] MEDS: SEVELAMER CARBONATE 800 MG TABLET PO SCH (12:39)
[2024-01-28] MEDS: FOLIC ACID/VITAMIN B COMP W-C TABLET PO SCH (12:39)
[2024-01-28] MEDS ORDERED: CYCLOSPORINE 100MG CAPSULE PO PRN (13:00)
[2024-01-28] MEDS ORDERED: DOCU250C14 PO (13:41)
[2024-01-28] MEDS ORDERED: [UNRECOGNIZED DRUG - CODE] PO (13:41)
[2024-01-28 16:00] VITALS: BP 84/52; PULSE 68; RESP 18; TEMP 36.61404; O2SAT 98
[2024-01-28 20:57] VITALS: BP 102/53; PULSE 78; RESP 19; TEMP 36.16956; O2SAT 99
[2024-01-28] MEDS ORDERED: LATANOPROST 0.005% OPHTH DROPS 2.5ML LEFTEYE SCH (21:00)
[2024-01-28] MEDS: RHOPRESSA 0.02% OP SCH (22:07)
[2024-01-28] MEDS: CYCLOSPORINE 0.05% OP SCH (22:08)
[2024-01-29 00:25] VITALS: BP 106/59; PULSE 65; RESP 16; TEMP 36.16956; O2SAT 98
[2024-01-29 04:00] VITALS: BP 126/65; PULSE 70; RESP 19; TEMP 36.16956; O2SAT 95
[2024-01-29 06:41] LABS: POTASSIUM 4.3 mEq/L (3.5-5.1)
[2024-01-29 06:42] LABS: CALCIUM 8.2 mg/dL (8.7-10.4)
[2024-01-29 06:52] LABS: CREATININE 10.1 mg/dL (0.6-1.3)
[2024-01-29] MEDS ORDERED: LIDOCAINE HCL/EPINEPHRINE 1%-EPI 1:100,000 20ML VIAL ONE (06:53)
[2024-01-29] MEDS ORDERED: VANCOMYCIN HCL 1GM VIAL ONE (06:53)
[2024-01-29] MEDS ORDERED: POLYMYXIN B SULFATE 500000 UNITS/VIAL ONE (06:53)
[2024-01-29 07:01] LABS: BASOPHILS % 0.3 % (0.0-2.0); EOSINOPHILS % 1.8 % (0.0-5.0); HEMATOCRIT. 28.9 % (42.0-52.0); HEMOGLOBIN. 9.3 g/dL (14.0-18.0); LYMPHOCYTES % 11.4 % (20.0-50.0); MEAN CORPUSCULAR HEMOGLOBIN 29.5 pg (28.0-32.0); MEAN CORPUSCULAR HGB CONC 32.2 g/dL (31.0-37.0); MEAN CORPUSCULAR VOLUME 91.5 fL (80.0-94.0); NEUTROPHILS % 79.5 % (40.0-76.0); PLATELET 207 x1000/uL (130-400); RED BLOOD CELL COUNT 3.16 mill/uL (4.7-6.1); RED CELL DISTRIBUTION WIDTH 18.5 % (11.6-14.6)
[2024-01-29] MEDS ORDERED: LIDOCAINE HCL 1% 10 MG/ML 10ML VIAL ONE ×2 (07:01→07:47)
[2024-01-29] MEDS ORDERED: PROPOFOL 200MG/20ML VIAL IV ONE (07:01)
[2024-01-29] MEDS ORDERED: DEXAMETHASONE 4MG/ML 1ML VIAL ONE (07:01)
[2024-01-29] MEDS ORDERED: ONDANSETRON HCL 4MG/2ML INJ ONE (07:01)
[2024-01-29] MEDS ORDERED: FENTANYL CITRATE/PF 50MCG/ML 2ML VIAL ONE (07:04)
[2024-01-29] MEDS ORDERED: ONDANSETRON HCL 4MG/2ML INJ IV PRN (08:00)
[2024-01-29] MEDS ORDERED: FENTANYL CITRATE/PF 50MCG/ML 2ML VIAL IV PRN (08:00)
[2024-01-29 08:05] VITALS: BP 142/82; PULSE 80; RESP 20; TEMP 36.61404; O2SAT 98
[2024-01-29] MEDS: HYDROMORPHONE HCL/PF 1MG/ML INJ IV PRN (09:25)
[2024-01-29] MEDS ORDERED: *PATIENT'S OWN MEDICATION STORAGE XX SCH (11:45)
[2024-01-29 12:00] VITALS: BP 117/98; PULSE 61; RESP 18; TEMP 37.16964; O2SAT 96
[2024-01-29] MEDS: CEFAZOLIN 2GM/100ML 100 ML IV SCH (14:00)
[2024-01-29] MEDS ORDERED: DEXTROSE 50% WATER 50ML SYRINGE IV PRN (17:45)
[2024-01-29] MEDS: ENOXAPARIN 30MG/0.3ML SYR SUBCUT SCH (17:58)
[2024-01-29] MEDS: INSULIN LISPRO 100 UNITS/ML SUBCUT SCH (18:56)
[2024-01-29 20:00] VITALS: BP 114/51; PULSE 79; RESP 20; TEMP 36.78072; O2SAT 97
[2024-01-29] MEDS: BLOOD SUGAR DIAGNOSTIC STRIP TEST SCH (20:23)
[2024-01-29] MEDS: FERROUS SULFATE 325MG TABLET PO SCH (20:32)
[2024-01-30] VITALS (10 sets, daily range): BP systolic 99–137; BP diastolic 44–87; PULSE 68–83; RESP 17–20; TEMP 36.3918–36.6696; O2SAT 95–100
[2024-01-30 09:48] LABS: BASOPHILS % 0.4 % (0.0-2.0); EOSINOPHILS % 0.5 % (0.0-5.0); HEMATOCRIT. 24.3 % (42.0-52.0); LYMPHOCYTES % 9.3 % (20.0-50.0); MEAN CORPUSCULAR HEMOGLOBIN 30.1 pg (28.0-32.0); MEAN CORPUSCULAR HGB CONC 32.8 g/dL (31.0-37.0); MEAN CORPUSCULAR VOLUME 91.8 fL (80.0-94.0); MEAN PLATELET VOLUME 7.5 fl (7.4-10.4); MONOCYTES % 6.6 % (2.0-8.0); NEUTROPHILS % 83.2 % (40.0-76.0); PLATELET 217 x1000/uL (130-400); RED BLOOD CELL COUNT 2.65 mill/uL (4.7-6.1); RED CELL DISTRIBUTION WIDTH 18.7 % (11.6-14.6); WHITE BLOOD COUNT 9.4 x1000/uL (4.5-11.0)
[2024-01-30 10:15] LABS: POTASSIUM 4.7 mEq/L (3.5-5.1)
[2024-01-30 10:16] LABS: CALCIUM 7.6 mg/dL (8.7-10.4)
[2024-01-30] MEDS: FAMOTIDINE 20MG/2ML VIAL IV SCH (10:19)
[2024-01-30 10:29] LABS: CREATININE 10.6 mg/dL (0.6-1.3)
[2024-01-30] MEDS: CEPHALEXIN 250MG CAPSULE PO SCH (17:40)
[2024-01-31] VITALS: BP 118/50; PULSE 68; RESP 20; TEMP 36.22512
[2024-01-31 04:00] VITALS: BP 142/47; PULSE 64; RESP 20; TEMP 35.72508; O2SAT 95
[2024-01-31 08:00] VITALS: BP 146/54; PULSE 67; RESP 18; TEMP 36.61404; O2SAT 100
[2024-01-31 16:00] VITALS: BP 116/44; PULSE 67; RESP 19; TEMP 35.72508; O2SAT 98
[2024-01-31 20:00] VITALS: BP 121/63; PULSE 65; RESP 20; TEMP 36.33624; O2SAT 95
[2024-01-31 22:04] LABS: BASOPHILS % 0.5 % (0.0-2.0); EOSINOPHILS % 2.6 % (0.0-5.0); HEMATOCRIT. 24.9 % (42.0-52.0); HEMOGLOBIN. 8.1 g/dL (14.0-18.0); LYMPHOCYTES % 10.8 % (20.0-50.0); MEAN CORPUSCULAR HEMOGLOBIN 29.9 pg (28.0-32.0); MEAN CORPUSCULAR HGB CONC 32.5 g/dL (31.0-37.0); MEAN CORPUSCULAR VOLUME 91.8 fL (80.0-94.0); MONOCYTES % 9.2 % (2.0-8.0); NEUTROPHILS % 76.9 % (40.0-76.0); PLATELET 239 x1000/uL (130-400); RED BLOOD CELL COUNT 2.72 mill/uL (4.7-6.1); RED CELL DISTRIBUTION WIDTH 18.6 % (11.6-14.6); WHITE BLOOD COUNT 7.1 x1000/uL (4.5-11.0)
[2024-01-31 22:12] LABS: POTASSIUM 4.8 mEq/L (3.5-5.1)
[2024-01-31 22:14] LABS: CALCIUM 8.1 mg/dL (8.7-10.4)
[2024-01-31 22:35] LABS: CREATININE 9.9 mg/dL (0.6-1.3)
[2024-02-01] VITALS (10 sets, daily range): BP systolic 95–154; BP diastolic 44–82; PULSE 58–76; RESP 18–19; TEMP 36.114–37.2252; O2SAT 97–100
[2024-02-01 10:09] LABS: BASOPHILS % 0.6 % (0.0-2.0); EOSINOPHILS % 2.7 % (0.0-5.0); HEMATOCRIT. 25.6 % (42.0-52.0); HEMOGLOBIN. 8.3 g/dL (14.0-18.0); LYMPHOCYTES % 8.2 % (20.0-50.0); MEAN CORPUSCULAR HEMOGLOBIN 29.9 pg (28.0-32.0); MEAN CORPUSCULAR HGB CONC 32.4 g/dL (31.0-37.0); MEAN CORPUSCULAR VOLUME 92.3 fL (80.0-94.0); MEAN PLATELET VOLUME 7.2 fl (7.4-10.4); MONOCYTES % 8.5 % (2.0-8.0); PLATELET 250 x1000/uL (130-400); RED BLOOD CELL COUNT 2.78 mill/uL (4.7-6.1); RED CELL DISTRIBUTION WIDTH 18.8 % (11.6-14.6); WHITE BLOOD COUNT 6.7 x1000/uL (4.5-11.0)
[2024-02-01 10:17] LABS: POTASSIUM 4.4 mEq/L (3.5-5.1)
[2024-02-01 10:28] LABS: CREATININE 10.4 mg/dL (0.6-1.3)
[2024-02-02] VITALS: BP 105/59; PULSE 71; RESP 18; TEMP 36.72516; O2SAT 99
[2024-02-02 07:22] LABS: CALCIUM 8.6 mg/dL (8.7-10.4); POTASSIUM 4.2 mEq/L (3.5-5.1)
[2024-02-02 07:36] LABS: CREATININE 7.5 mg/dL (0.6-1.3)
[2024-02-02 07:41] LABS: BASOPHILS % 0.5 % (0.0-2.0); EOSINOPHILS % 2.9 % (0.0-5.0); HEMATOCRIT. 26.4 % (42.0-52.0); HEMOGLOBIN. 8.4 g/dL (14.0-18.0); LYMPHOCYTES % 10.1 % (20.0-50.0); MEAN CORPUSCULAR HEMOGLOBIN 29.6 pg (28.0-32.0); MEAN CORPUSCULAR HGB CONC 31.7 g/dL (31.0-37.0); MEAN CORPUSCULAR VOLUME 93.5 fL (80.0-94.0); NEUTROPHILS % 74.5 % (40.0-76.0); PLATELET 259 x1000/uL (130-400); RED BLOOD CELL COUNT 2.83 mill/uL (4.7-6.1); RED CELL DISTRIBUTION WIDTH 18.8 % (11.6-14.6); WHITE BLOOD COUNT 6.7 x1000/uL (4.5-11.0)
[2024-02-02 08:00] VITALS: BP 138/60; PULSE 68; RESP 19; TEMP 36.72516; O2SAT 100
[2024-02-02] MEDS: POLYVINYL ALCOHOL OPHTH DROPS 15ML RIGHTEYE SCH (09:37)
[2024-02-02 12:00] VITALS: BP 130/105; PULSE 70; RESP 20; TEMP 36.78072; O2SAT 96
[2024-02-02] MEDS ORDERED: SEVE800T8 PO (13:54)
[2024-02-02] MEDS ORDERED: FERR-63 PO (13:54)
[2024-02-02] MEDS ORDERED: FOLI0.8T53 PO (13:54)
[2024-02-02] MEDS ORDERED: ACETAMINOPHEN 650MG/20.3ML UDC PO PRN (14:00)
[2024-02-02] MEDS ORDERED: KETOROLAC 15MG/ML VIAL IV PRN (14:00)
[2024-02-02] MEDS: HYDROCODONE/ACETAMINOPHEN 5/325MG TABLET PO PRN (14:51)
[2024-02-02] MEDS ORDERED: ACET650S25 PO (16:04)
[2024-02-02 20:00] VITALS: BP 145/59; PULSE 77; RESP 19; TEMP 35.89176; O2SAT 98
[2024-02-03] VITALS: BP 132/61; PULSE 70; RESP 19; TEMP 35.78064; O2SAT 96
[2024-02-03 07:11] LABS: BASOPHILS % 0.7 % (0.0-2.0); EOSINOPHILS % 4.6 % (0.0-5.0); HEMATOCRIT. 24.4 % (42.0-52.0); HEMOGLOBIN. 8.1 g/dL (14.0-18.0); LYMPHOCYTES % 11.6 % (20.0-50.0); MEAN CORPUSCULAR VOLUME 91.1 fL (80.0-94.0); MEAN PLATELET VOLUME 6.9 fl (7.4-10.4); MONOCYTES % 11.8 % (2.0-8.0); NEUTROPHILS % 71.3 % (40.0-76.0); PLATELET 258 x1000/uL (130-400); RED BLOOD CELL COUNT 2.68 mill/uL (4.7-6.1); RED CELL DISTRIBUTION WIDTH 18.6 % (11.6-14.6)
[2024-02-03 07:16] LABS: POTASSIUM 4.5 mEq/L (3.5-5.1)
[2024-02-03 07:17] LABS: CALCIUM 8.6 mg/dL (8.7-10.4)
[2024-02-03 07:40] LABS: CREATININE 9.1 mg/dL (0.6-1.3)
[2024-02-03 08:00] VITALS: BP 124/48; PULSE 66; RESP 18; TEMP 36.55848; O2SAT 98
[2024-02-03 12:00] VITALS: BP 99/54; PULSE 70; RESP 19; TEMP 36.33624; O2SAT 99
[2024-02-03 16:00] VITALS: BP 102/50; PULSE 64; RESP 19; TEMP 36.28068; O2SAT 99
[2024-02-03] MEDS ORDERED: PANT40SU MT (16:45)
[2024-02-03] MEDS ORDERED: IBUP-2030 MT (16:45)
[2024-02-03 18:36] VITALS: BP 102/50; PULSE 64; TEMP 97; O2SAT 99
== END 2024-02-03 19:25 | disposition home health service (06) | DRG 480 ==
LOC: ER 12:41 → EDBEDREQTM 17:08 → EDBEDREQ 17:08 → EDBEDREQSVC 17:08 → 5WST 19:11 → 7WST 01-27 01:13 → 6EST 01-29 11:30
PROVIDERS: ADMIT Internal Medicine; ATTEND Internal Medicine
PROC: 5A1D70Z Performance of Urinary Filtration, Intermittent, Less than 6 Hours Per Day (ICD-10-PCS; 2024-01-27)
PROC: 0QS706Z Reposition Left Upper Femur with Intramedullary Internal Fixation Device, Open Approach (ICD-10-PCS; principal; 2024-01-29)
PROC: 5A1D70Z Performance of Urinary Filtration, Intermittent, Less than 6 Hours Per Day (ICD-10-PCS; 2024-01-30)
PROC: 5A1D70Z Performance of Urinary Filtration, Intermittent, Less than 6 Hours Per Day (ICD-10-PCS; 2024-02-01)
DX: S72.142A Displaced intertrochanteric fracture of left femur, initial encounter for closed fracture (principal); I21.A1 Myocardial infarction type 2; N18.6 End stage renal disease; E87.1 Hypo-osmolality and hyponatremia; I13.2 Hypertensive heart and chronic kidney disease with heart failure and with stage 5 chronic kidney disease, or end stage renal disease; D72.829 Elevated white blood cell count, unspecified; E11.22 Type 2 diabetes mellitus with diabetic chronic kidney disease; E87.5 Hyperkalemia; H40.9 Unspecified glaucoma; I50.9 Heart failure, unspecified; I95.3 Hypotension of hemodialysis; I48.0 Paroxysmal atrial fibrillation; D63.1 Anemia in chronic kidney disease; I35.0 Nonrheumatic aortic (valve) stenosis; Z79.899 Other long term (current) drug therapy; Z91.158 Patient's noncompliance with renal dialysis for other reason; W01.0XXA Fall on same level from slipping, tripping and stumbling without subsequent striking against object, initial encounter; Y93.89 Activity, other specified; Y92.89 Other specified places as the place of occurrence of the external cause; Y99.8 Other external cause status
CPT/HCPCS: 36415; 73502; 73552; 76000; 80048; 80051; 80053; 80061; 80076; 82550; 82607; 82728; 82746; 82962; 83036; 83540; 83550; 83605; 83735; 84100; 84132; 84145; 84443; 84484; 85025; 86850; 86900; 87426; 90935; 93005; 93306; 93970; 94640; 97110; 97116; 97162; 97166; 97530; 97535; 99285; C1893; J0690; J0696; J1100; J1170; J1650; J1815; J2270; J2405; J2704; J3010; J3370; J3490; J7060; C1713